=== PATIENT | male | born 1980 | race Caucasian/White ===

== ENCOUNTER 2017-06-28 05:32 | Observation (INO) | payer MEDICAID ==
[2017-06-28] MEDS ORDERED: Sodium Chloride 0.9% 10 ML Syringe FLUSH PRN (05:43)
[2017-06-28] MEDS ORDERED: Ondansetron 4 MG/2 ML SDV IVPUSH ONE (05:44)
--- NOTE | 2017-06-28 07:05 | EDM.PDOC ---
ED HPI GENERAL MEDICAL PROBLEM - General Chief Complaint: General Stated Complaint: Hernia pain Time Seen by Provider: 06/28/17 06:20 Source of Information: Reports: Patient History Limitations: Reports: No Limitations - History of Present Illness INITIAL COMMENTS - FREE TEXT/NARRATIVE: Patient is a 36 year old man who has had ventral hernia repair in 2014. He has had problems off and on then with abdominal pain off and on. This morning at 04: 00 he started having severe 9/10 pain that is crampy in nature over the hernia on the right side of his abdomen. The pain can go away if he lays a certain way. No fever or chills or urinary problems. Onset: Today Onset Date: 06/28/17 Onset Time: 04:00 Duration: Hour(s): (2), Waxing/Waning Location: Reports: Abdomen Quality: Reports: Ache, Same as Previous Episode Severity: Severe (9/10) Improves with: Reports: Movement Worsens with: Reports: None Context: Reports: Other (Status post multiple abdominal surgeries.) Associated Symptoms: Reports: Nausea/Vomiting, Other (Last bowel movement this morning.) - Related Data Allergies Allergy/AdvReac Type Severity Reaction Status Date / Time No Known Allergies Allergy Verified 04/29/16 02:04 Home Meds: Home Meds Lisinopril [Prinivil] 10 mg PO DAILY 05/11/13 [History] Omeprazole 40 mg PO DAILY 05/11/13 [History] Metoprolol Tartrate [Lopressor] 50 mg PO BID 07/28/13 [History] Sertraline HCl [Sertraline HCl] 50 mg PO DAILY 03/22/15 [History] clonazePAM [Clonazepam] 0.5 mg PO BID 03/22/15 [History] oxyCODONE 5 mg PO Q4H PRN 04/29/16 [History] Past Medical History - Past Health History Medical/Surgical History: Denies Medical/Surgical History HEENT History: Reports: Impaired Vision Cardiovascular History: Reports: Hypertension Respiratory History: Reports: SOB Gastrointestinal History: Reports: GERD Psychiatric History: Reports: Addiction, Other (See Below) Other Psychiatric History: Admits to being addicted to narcotic pain medications - Infectious Disease History Infectious Disease History: Reports: Chicken Pox - Past Surgical History GI Surgical History: Reports: Hernia, Abdominal Social & Family History - Family History Family Medical History: Noncontributory - Tobacco Use Smoking Status *Q: Current Some Day Smoker Years of Tobacco use: 25 Packs/Tins Daily: 1 Used Tobacco, but Quit: No Second Hand Smoke Exposure: No - Caffeine Use Caffeine Use: Reports: Coffee, Soda - Alcohol Use Days Per Week of Alcohol Use: 2 Number of Drinks Per Day: 3 Total Drinks Per Week: 6 - Recreational Drug Use Recreational Drug Use: Yes Recreational Drug Type: Reports: Marijuana/Hashish ED ROS GENERAL - Review of Systems Review Of Systems: See Below Constitutional: Reports: Decreased Appetite HEENT: Reports: No Symptoms Respiratory: Reports: No Symptoms Cardiovascular: Reports: No Symptoms Endocrine: Reports: No Symptoms GI/Abdominal: Reports: Abdominal Pain, Nausea : Reports: No Symptoms Musculoskeletal: Reports: No Symptoms Skin: Reports: No Symptoms Neurological: Reports: No Symptoms Psychiatric: Reports: No Symptoms Hematologic/Lymphatic: Reports: No Symptoms Immunologic: Reports: No Symptoms ED EXAM, GENERAL - Physical Exam Exam: See Below Exam Limited By: No Limitations General Appearance: Alert, WD/WN, No Apparent Distress Eye Exam: Bilateral Eye: EOMI, Normal Fundi, Normal Inspection, PERRL Ears: Normal External Exam, Normal Canal, Hearing Grossly Normal, Normal TMs Ear Exam: Bilateral Ear: Auricle Normal, Canal Normal, TM normal Nose: Normal Inspection, Normal Mucosa, No Blood Throat/Mouth: Normal Inspection, Normal Lips, Normal Teeth, Normal Gums, Normal Oropharynx, Normal Voice, No Airway Compromise Head: Atraumatic, Normocephalic Neck: Normal Inspection, Supple, Non-Tender, Full Range of Motion Respiratory/Chest: No Respiratory Distress, Lungs Clear, Normal Breath Sounds, No Accessory Muscle Use, Chest Non-Tender Cardiovascular: Normal Peripheral Pulses, Regular Rate, Rhythm, No Edema, No Gallop, No JVD, No Murmur, No Rub GI/Abdominal: Distended, Guarding, Rebound, Tender, Hernia (Large tender ventral hernia on the right.) Back Exam: Normal Inspection, Full Range of Motion, NT Extremities: Normal Inspection, Normal Range of Motion, Non-Tender, Normal Capillary Refill, No Pedal Edema Neurological: Alert, Oriented, CN II-XII Intact, Normal Cognition, Normal Gait, Normal Reflexes, No Motor/Sensory Deficits Psychiatric: Normal Affect, Normal Mood Skin Exam: Warm, Dry, Intact, Normal Color, No Rash Lymphatic: No Adenopathy Course - Vital Signs Text/Narrative:: Uneventful ED course. He got some relief with bowel rest and IV fluids. He was given 1 mg of Dilaudid and 4 mg of Zofran IV after the CT scan showed that he has a bowel obstruction, likely from the adhesions of his many surgeries. He will be admitted to observation with IV fluids and pain relief, since he needs to see a surgeon but Dr. Huang will know best where he should be transfered to for surgery given that he cannot go to certain institutions at this time due to past operations. - Orders/Labs/Meds Orders: Active Orders 24 hr Category Date Time Status Abdomen Pelvis w Cont [CT] Stat Exams 06/28/17 05:42 Taken Sodium Chloride 0.9% [Saline Flush] Med 06/28/17 05:43 Active 10 ml FLUSH ASDIRECTED PRN Saline Lock Insert [OM.PC] Routine Oth 06/28/17 05:43 Ordered Medication Orders Sodium Chloride (Saline Flush) 10 ml FLUSH ASDIRECTED PRN PRN Reason: Keep Vein Open Labs: Laboratory Tests 06/28/17 06/28/17 06/28/17 Range/Units 05:50 05:50 06:13 WBC 9.8 (4.0-11.0) K/uL RBC 4.97 (4.50-6.50) M/uL Hgb 14.3 (13.0-18.0) g/dL Hct 42.9 (40.0-54.0) % MCV 86 (76-96) fL MCH 28.8 (27.0-32.0) pg MCHC 33.3 (31.0-35.0) g/dL RDW 14.3 (11.0-16.0) % Plt Count 245 (150-400) K/uL MPV 9.8 (6.0-10.0) fL Neut % (Auto) 64.2 (45.0-70.0) % Lymph % (Auto) 22.1 (20.0-40.0) % [place] % (Auto) 10.5 H (3.0-10.0) % Eos % (Auto) 3.0 (1.0-5.0) % Baso % (Auto) 0.2 (0.0-0.5) % Neut # (Auto) 6.27 (2.00-7.50) K/uL Lymph # (Auto) 2.16 (1.50-4.00) K/uL [place] # (Auto) 1.03 H (0.20-0.80) K/uL Eos # (Auto) 0.29 (0.04-0.40) K/uL Baso # (Auto) 0.02 (0.02-0.10) K/uL Sodium 141 (136-145) mmol/L Potassium 4.1 (3.5-5.1) mmol/L Chloride 103 (98-107) mmol/L Carbon Dioxide 29.8 (21.0-32.0) mmol/L Anion Gap 12.3 (5.0-15.0) mmol/L BUN 15 D (8-26) mg/dL Creatinine 0.94 (0.70-1.30) mg/dL Est Cr Clr Drug Dosing TNP Estimated GFR (MDRD) > 60 (>60) MLS/MIN BUN/Creatinine Ratio 16.0 (6-25) Glucose 169 H (74-100) mg/dL Calcium 9.2 (8.5-10.1) mg/dL Total Bilirubin 0.4 D (0.0-1.0) mg/dL AST 20 (15-37) U/L ALT 39 (12-78) U/L Alkaline Phosphatase 66 (46-116) U/L Total Protein 7.7 (6.4-8.2) g/dL Albumin 3.6 (3.4-5.0) g/dL Globulin 4.1 (2.2-4.2) g/dL Albumin/Globulin Ratio 0.9 (0.8-2.0) Urine Color Yellow Urine Appearance Clear (CLEAR) Urine pH 6.0 (5.0-8.0) Ur Specific [place] >= 1.030 (1.003-1.030) Urine Protein 30 H (NEGATIVE) mg/dL Urine Glucose (UA) Negative (NEGATIVE) mg/dL Urine Ketones Negative (NEGATIVE) mg/dL Urine Occult Blood Negative (NEGATIVE) Urine Nitrite Negative (NEGATIVE) Urine Bilirubin Negative (NEGATIVE) Urine Urobilinogen 0.2 (0.2-1.0) E.U./dL Ur Leukocyte Esterase Negative (NEGATIVE) Urine RBC Not seen /HPF Urine WBC 0-5 H /HPF Ur Squamous Epith Cells Moderate /HPF Urine Bacteria Few /HPF Meds: Medications Generic Name Dose Route Start Last Admin Trade Name Freq PRN Reason Stop Dose Admin Sodium Chloride 10 ml 06/28/17 05:43 Saline Flush FLUSH ASDIRECTED PRN Keep Vein Open Discontinued Medications Generic Name Dose Route Start Last Admin Trade Name Freq PRN Reason Stop Dose Admin Sodium Chloride 1,000 mls @ 1,000 mls/hr 06/28/17 05:44 Normal Saline IV 06/28/17 06:43 .BOLUS ONE Ondansetron HCl 4 mg 06/28/17 05:44 Zofran IVPUSH 06/28/17 05:45 ONETIME ONE Departure - Departure Time of Disposition: 07:15 Disposition: Refer to Observation Condition: Good Clinical Impression: Small bowel obstruction due to adhesions - Discharge Information Referrals: PCP,None [Primary Care Provider] - - My Orders Last 24 Hours: My Active Orders 06/28/17 05:42 Abdomen Pelvis w Cont [CT] Stat 06/28/17 05:43 Sodium Chloride 0.9% [Saline Flush] 10 ml FLUSH ASDIRECTED PRN Saline Lock Insert [OM.PC] Routine - Assessment/Plan Last 24 Hours: My Active Orders 06/28/17 05:42 Abdomen Pelvis w Cont [CT] Stat 06/28/17 05:43 Sodium Chloride 0.9% [Saline Flush] 10 ml FLUSH ASDIRECTED PRN Saline Lock Insert [OM.PC] Routine
[2017-06-28] MEDS ORDERED: HYDROmorphone 2 MG/ML Syringe ONE (07:10)
[2017-06-28] MEDS ORDERED: Ondansetron 4 MG/2 ML SDV ONE ×2 (07:10→13:25)
[2017-06-28] MEDS: Sodium Chloride 0.9% 1,000 ML IV ONE ×2 (07:25→15:22)
--- NOTE | 2017-06-28 08:41 | CT ---
ENHANCED ABDOMEN AND PELVIC CT, 06/28/17 Multislice acquisition through the abdomen and pelvis with IV, but without oral contrast was performed. Breathing motion artifact degrades the image quality. Comparison is made to a prior exam dated 02/19/15. Portions of the anterior abdomen and anterior abdominal wall are cut off secondary to the patient's size. There are atelectatic changes in the dependent portion of both lower lungs. The lung bases are otherwise clear. There is diffuse fatty infiltration of the liver. No focal hepatic lesions. The gallbladder appears normal. The spleen appears normal. The pancreas appears normal. The right and left adrenals appear normal. The right and left kidneys appear normal. No nephrocalcinosis or nephrolithiasis. No hydronephrosis or hydroureter. The bladder is partially fluid-filled. It appears normal. The appendix is not dilated. No evidence of appendicitis. There is a ventral hernia left of the midline that contains a loop of bowel. No evidence of obstruction associated with it. There is a large ventral hernia to the right of the midline. It contains multiple loops of small bowel. They do contain multiple air-fluid levels. They are not, however distended. There is another ventral hernia on the left that contains multiple loops of small bowel that contain air-fluid levels. They are not distended . There is another smaller ventral hernia on the right that contains a loop of small bowel that is distended and contains air-fluid levels. There are loops of small bowel proximal to this that contain air-fluid levels also. Small bowel obstruction is suspected. I do not see any free air, however it cannot be excluded. No free fluid. No adenopathy. No aortic aneurysm or dissection. IMPRESSION: Multiple ventral hernias as discussed above. Small bowel obstruction is suspected. Surgical consultation is recommended. [id number] [facility]
[2017-06-28 09:12] VITALS: BP 139/81
--- NOTE | 2017-06-28 12:22 | PCM.SN ---
- Free Text/Narrative Note: Patient has improved symptoms. States he has had some gas. Improved pain and tenderness. Area of abdomen is now soft and no longer distended. Patient has increased appetite despite NPO. We will closely monitor.
[2017-06-28] MEDS ORDERED: HYDROmorphone 4 MG/ML Syringe ONE (13:25)
[2017-06-28] MEDS ORDERED: Ondansetron 4 MG/2 ML SDV IVPUSH PRN (13:43)
[2017-06-28] MEDS: HYDROmorphone 2 MG/ML Syringe IVPUSH PRN (23:37)
[2017-06-29] MEDS ORDERED: Sodium Chloride 0.9% 1,000 ML IV SCH (00:15)
[2017-06-29] MEDS ORDERED: HYDROmorphone 4 MG/ML Syringe ONE (07:07)
[2017-06-29] MEDS: HYDROmorphone 2 MG/ML Syringe IVPUSH PRN (07:11)
--- NOTE | 2017-07-06 14:50 | PCM.DCSUM1 ---
Discharge Summary - Discharge Data Discharge Date: 06/29/17 Discharge Disposition: Home, Self-Care 01 Condition: Good - Patient Instructions Diet: Clear Liquid Diet Diet, Other: soft food meal plan Activity: Rest and Relax Today - Discharge Plan Home Medications: Home Meds Lisinopril [Prinivil] 10 mg PO DAILY 05/11/13 [History] Omeprazole 40 mg PO DAILY 05/11/13 [History] Metoprolol Tartrate [Lopressor] 50 mg PO BID 07/28/13 [History] Sertraline HCl [Sertraline HCl] 50 mg PO DAILY 03/22/15 [History] Patient Handouts: Small Bowel Obstruction, [id number], Clear Liquid Diet, Adult, Soft-Food Meal Plan Forms: ED Department Discharge Referrals: PCP,None [Primary Care Provider] - - Discharge Summary/Plan Comment DC Time >30 min.: Yes Discharge Summary/Plan Comment: Counseled on continued clear liquids at this time for at least 1-2 weeks more. Discussed slow advance to soft foods with small meals and frequent meals. Discussed referral to [facility] and continued close monitoring and f/u as directed and in clinic. RTC or ER if symptoms return. - Patient Data Vitals - Most Recent: Last Vital Signs Temp Pulse 60 06/28/17 07:34 Resp 16 06/28/17 07:34 BP 139/81 06/28/17 07:34 Pulse Ox 97 06/28/17 07:34 Med Orders - Current: Current Medications Discontinued Medications Hydromorphone HCl (Dilaudid) Confirm Administered Dose 2 mg .ROUTE .STK-MED ONE Stop: 06/28/17 07:11 Last Admin: 06/28/17 07:10 Dose: 2 mg Hydromorphone HCl (Dilaudid) Confirm Administered Dose 4 mg .ROUTE .STK-MED ONE Stop: 06/28/17 13:26 Last Admin: 06/28/17 13:30 Dose: 1 mg Hydromorphone HCl (Dilaudid) 1 - 2 mg IVPUSH Q2H PRN PRN Reason: Pain Last Admin: 06/29/17 07:11 Dose: 2 mg Hydromorphone HCl (Dilaudid) Confirm Administered Dose 4 mg .ROUTE .STK-MED ONE Stop: 06/29/17 07:08 Last Admin: 06/29/17 07:54 Dose: Not Given Sodium Chloride (Normal Saline) 1,000 mls @ 1,000 mls/hr IV .BOLUS ONE Stop: 06/28/17 06:43 Last Admin: 06/28/17 15:22 Dose: 1,000 mls/hr Sodium Chloride (Normal Saline) 1,000 mls @ 125 mls/hr IV ASDIRECTED SAÚL Stop: 07/06/17 08:14 Last Admin: 06/29/17 01:06 Dose: 125 mls/hr Ondansetron HCl (Zofran) 4 mg IVPUSH ONETIME ONE Stop: 06/28/17 05:45 Last Admin: 06/28/17 07:10 Dose: 4 mg Ondansetron HCl (Zofran) Confirm Administered Dose 4 mg .ROUTE .STK-MED ONE Stop: 06/28/17 07:11 Last Admin: 06/28/17 07:37 Dose: Not Given Ondansetron HCl (Zofran) Confirm Administered Dose 4 mg .ROUTE .STK-MED ONE Stop: 06/28/17 13:26 Last Admin: 06/28/17 13:32 Dose: 4 mg Ondansetron HCl (Zofran) 4 mg IVPUSH Q6H PRN PRN Reason: Nausea/Vomiting Sodium Chloride (Saline Flush) 10 ml FLUSH ASDIRECTED PRN PRN Reason: Keep Vein Open *Q Meaningful Use (DIS) - VTE *Q VTE Criteria *Q: - Stroke *Q Stroke Criteria *Q: - AMI *Q AMI Criteria *Q:
== END 2017-06-29 10:36 | disposition home or self-care (01) ==
LOC: LB.ED 05:32 → UNDOADMOB 07:15 → LB.MS 07:15
PROVIDERS: ADMIT Family Medicine; ATTEND Family Medicine
DX: K56.50 Intestinal adhesions [bands], unspecified as to partial versus complete obstruction (principal); I10 Essential (primary) hypertension; K21.9 Gastro-esophageal reflux disease without esophagitis; Z79.899 Other long term (current) drug therapy; F17.210 Nicotine dependence, cigarettes, uncomplicated
CPT/HCPCS: 36415; 74177; 80053; 81001; 85025; 96361; 96374; 96376; 99284; G0378; J1170; J2405; J7040; 96375

== ENCOUNTER 2017-08-22 12:27 | Emergency (ER) | payer MEDICAID ==
[2017-08-22 12:59] VITALS: BP 133/106
[2017-08-22] MEDS ORDERED: Morphine 10 MG/ML Syringe ONE ×3 (13:34→16:15)
[2017-08-22] MEDS: Morphine 10 MG/ML Syringe IVPUSH ONE ×2 (13:36→15:15)
[2017-08-22] MEDS ORDERED: LORazepam 2 MG/ML SDV ONE (15:53)
--- NOTE | 2017-08-23 16:09 | CR ---
DATE OF SERVICE: 08/22/2017 CLINICAL DATA: Abdominal pain; hernia Supine and Upright Abdomen: No evidence of obstruction or ileus. No free air. MTDD
--- NOTE | 2017-08-23 16:16 | CT ---
DATE OF SERVICE: 08/22/2017 CLINICAL DATA: Abdominal Pain; hernia Unenhanced abdomen and pelvic CT: Multislice acquisition through the abdomen and pelvis without IV or oral contrast was performed. Comparison made to prior exam dated 08/22/2017. The lung bases are clear. Liver, spleen, pancreas, right and left adrenals, and right and left kidneys are stable from the prior study. The bladder is partially fluid-filled and appears normal. There are multiple ventral hernias. All of these containing multiple loops of bowel. No definite evidence for obstruction or ileus associated with them. There is diverticulosis of the sigmoid colon. No evidence fo diverticulitis. The appendix is not dilated. No evidence of appendicitis. There is an anastomosis noted in the sigmoid colon. No free air. No free fluid. No adenopathy. No dilated loops of bowel. No aortic aneurysm. MTDD
== END 2017-08-22 16:15 ==
LOC: LB.ED 12:27
DX: K43.6 Other and unspecified ventral hernia with obstruction, without gangrene (principal); I10 Essential (primary) hypertension; Z79.899 Other long term (current) drug therapy
CPT/HCPCS: 36415; 74019; 74176; 80053; 85025; 96374; 99284-25; A0425; A0429; J2270

== ENCOUNTER 2017-10-30 17:24 | Emergency (ER) | payer MEDICAID ==
[2017-10-30] MEDS ORDERED: Ketorolac 10 MG Tab ONE (17:30)
--- NOTE | 2017-10-30 17:37 | EDM.PDOC ---
ED HPI GENERAL MEDICAL PROBLEM - General Chief Complaint: General Stated Complaint: ABDOMINAL PAIN Time Seen by Provider: 10/30/17 17:30 Source of Information: Reports: Patient History Limitations: Reports: No Limitations - History of Present Illness INITIAL COMMENTS - FREE TEXT/NARRATIVE: According to patient, he has been having right side lower abdominal pain since today morning. Pain is crampy in nature and is waxing and waning type. no nausea or vomiting. no fever. Pt has had failed umbilical hernia repair and claims he does get frequent bowel obstruction. Pt thinks he might have had a coughing spell in the morning when he developed the pain. rate pain at 8/10. He did have normal bowel movement today morning and has been passing flatus. No other complaints. Onset: Today Onset Date: 10/30/17 Onset Time: 08:00 Duration: Waxing/Waning Location: Reports: Abdomen Quality: Reports: Ache Severity: Moderate Improves with: Reports: None Worsens with: Reports: None Associated Symptoms: Denies: Confusion, Chest Pain, Cough, Diaphoresis, Fever/ Chills, Headaches, Nausea/Vomiting, Rash, Seizure, Shortness of Breath, Syncope , Weakness RIGHT LOWER ABD Pain Score (Numeric/FACES): 10 - Related Data Allergies Allergy/AdvReac Type Severity Reaction Status Date / Time No Known Allergies Allergy Verified 10/30/17 17:30 Home Meds: Home Meds Lisinopril [Prinivil] 10 mg PO DAILY 05/11/13 [History] Omeprazole 40 mg PO DAILY 05/11/13 [History] Metoprolol Tartrate [Lopressor] 50 mg PO BID 07/28/13 [History] Sertraline HCl 50 mg PO DAILY 03/22/15 [History] Past Medical History - Past Health History Medical/Surgical History: Denies Medical/Surgical History HEENT History: Reports: Impaired Vision Cardiovascular History: Reports: Hypertension Respiratory History: Reports: SOB Gastrointestinal History: Reports: GERD Psychiatric History: Reports: Addiction, Other (See Below) Other Psychiatric History: Admits to being addicted to narcotic pain medications - Infectious Disease History Infectious Disease History: Reports: Chicken Pox - Past Surgical History GI Surgical History: Reports: Hernia, Abdominal Social & Family History - Family History Family Medical History: Noncontributory - Caffeine Use Caffeine Use: Reports: Coffee, Soda ED ROS GENERAL - Review of Systems Review Of Systems: See Below Constitutional: Denies: Fever, Chills, Malaise, Weakness HEENT: Denies: Rhinitis, Throat Pain, Throat Swelling Respiratory: Denies: Shortness of Breath, Wheezing, Pleuritic Chest Pain, Cough , Sputum Cardiovascular: Denies: Chest Pain, Lightheadedness GI/Abdominal: Reports: Abdominal Pain, Distension, Flatus. Denies: Nausea, Vomiting : Denies: Dysuria, Flank Pain Musculoskeletal: Denies: Joint Pain, Joint Swelling Skin: Denies: Bruising, Pruritis, Rash ED EXAM, GENERAL - Physical Exam Exam: See Below Exam Limited By: No Limitations General Appearance: Alert, WD/WN, No Apparent Distress Eye Exam: Bilateral Eye: EOMI, PERRL Ears: Normal External Exam, Normal Canal, Hearing Grossly Normal, Normal TMs Ear Exam: Bilateral Ear: Auricle Normal, Canal Normal, TM normal Nose: Normal Inspection, Normal Mucosa, No Blood Throat/Mouth: Normal Inspection, Normal Lips, Normal Teeth, Normal Gums, Normal Oropharynx, Normal Voice, No Airway Compromise Head: Atraumatic, Normocephalic Neck: Normal Inspection, Supple, Non-Tender, Full Range of Motion Respiratory/Chest: No Respiratory Distress, Lungs Clear, Normal Breath Sounds, No Accessory Muscle Use, Chest Non-Tender Cardiovascular: Normal Peripheral Pulses, Regular Rate, Rhythm, No Edema, No Gallop, No JVD, No Murmur, No Rub GI/Abdominal: Normal Bowel Sounds, Soft, Distended, Other (there is a large midline scar over the abdomen and also there are large abdominal wall hernia oneither side of the scar. Tender over the rigth sdie of anthony scar and the swelling. There are normal bowel sounds heard.). No: Guarding, Rigid, Rebound Course - Vital Signs Text/Narrative:: Pt reassured that his CBC is normal. His BMP is normal . He did receive dilaudid 1mg Im for pain. DID get Ct abdomen. CT abdomen with oral contrast shows large ventral hernia, there is no bowel obstruction. Also on clinical exam there is good bowel sounds heard. there is some hard stool in the colon. I have reassured patient that there is constipation asso with the pain, but no obstruction. Pt still c/o pain. He did receive toradol 60mg IM. Advised miralax 1 tablespoon with 6 oz of water. toradol 10mg po TID prn for pain. If her develops severe abdominal pain, bloating, nausea or vomiting needs to return to clinic. other riggins followup in clinic with his PCP next week. Last Recorded V/S: Last Vital Signs Temp 98 F 10/30/17 20:02 Pulse 67 10/30/17 20:02 Resp 20 10/30/17 20:02 BP 116/76 10/30/17 20:02 Pulse Ox 97 10/30/17 20:02 - Orders/Labs/Meds Orders: Active Orders 24 hr Category Date Time Status Abdomen Pelvis wo Cont [CT] Stat Exams 10/30/17 17:29 Taken Pelvis wo Cont [CT] Stat Exams 10/30/17 18:45 Taken Diatrizoate Rachelle/Diatrizoate Na [Gastrografin 37%] Med 10/30/17 18:00 Active 30 ml PO . DIRECTED Medication Orders Diatrizoate Meglum/Diatrizoate Sod (Gastrografin 37%) 30 ml PO . DIRECTED SAÚL Last Admin: 10/30/17 17:40 Dose: 30 ml Labs: Laboratory Tests 10/30/17 10/30/17 Range/Units 17:35 17:35 WBC 12.1 H D (4.0-11.0) K/uL RBC 5.02 (4.50-6.50) M/uL Hgb 14.7 (13.0-18.0) g/dL Hct 43.0 (40.0-54.0) % MCV 86 (76-96) fL MCH 29.3 (27.0-32.0) pg MCHC 34.2 (31.0-35.0) g/dL RDW 13.6 (11.0-16.0) % Plt Count 236 (150-400) K/uL MPV 10.2 H (6.0-10.0) fL Neut % (Auto) 72.2 H (45.0-70.0) % Lymph % (Auto) 17.1 L (20.0-40.0) % [place] % (Auto) 8.1 (3.0-10.0) % Eos % (Auto) 2.4 (1.0-5.0) % Baso % (Auto) 0.2 (0.0-0.5) % Neut # (Auto) 8.73 H (2.00-7.50) K/uL Lymph # (Auto) 2.07 (1.50-4.00) K/uL [place] # (Auto) 0.98 H (0.20-0.80) K/uL Eos # (Auto) 0.29 (0.04-0.40) K/uL Baso # (Auto) 0.02 (0.02-0.10) K/uL Sodium 140 (136-145) mmol/L Potassium 4.0 (3.5-5.1) mmol/L Chloride 103 (98-107) mmol/L Carbon Dioxide 27.5 (21.0-32.0) mmol/L Anion Gap 13.5 (5.0-15.0) mmol/L BUN 14 D (8-26) mg/dL Creatinine 0.78 (0.70-1.30) mg/dL Est Cr Clr Drug Dosing 143.69 mL/min Estimated GFR (MDRD) > 60 (>60) MLS/MIN BUN/Creatinine Ratio 17.9 (6-25) Glucose 122 H (74-100) mg/dL Calcium 9.1 (8.5-10.1) mg/dL Meds: Medications Generic Name Dose Route Start Last Admin Trade Name Freq PRN Reason Stop Dose Admin Diatrizoate Meglum/Diatrizoate Sod 30 ml 10/30/17 18:00 10/30/17 17:40 Gastrografin 37% PO 30 ml . DIRECTED SAÚL Administration Discontinued Medications Generic Name Dose Route Start Last Admin Trade Name Freq PRN Reason Stop Dose Admin Ketorolac Tromethamine Confirm 10/30/17 20:09 Toradol Administered 10/30/17 20:10 Dose 60 mg .ROUTE .STK-MED ONE Departure - Departure Time of Disposition: 20:15 Disposition: Home, Self-Care 01 Condition: Fair Clinical Impression: Abdominal pain - Discharge Information Forms: ED Department Discharge Additional Instructions: Pt reassured that his CBC is normal. His BMP is normal . He did receive dilaudid 1mg Im for pain. DID get Ct abdomen. CT abdomen with oral contrast shows large ventral hernia, there is no bowel obstruction. Also on clinical exam there is good bowel sounds heard. there is some hard stool in the colon. I have reassured patient that there is constipation asso with the pain, but no obstruction. Pt still c/o pain. He did receive toradol 60mg IM. Advised miralax 1 tablespoon with 6 oz of water. toradol 10mg po TID prn for pain. If her develops severe abdominal pain, bloating, nausea or vomiting needs to return to clinic. other riggins followup in clinic with his PCP next week. - Problem List & Annotations (1) Abdominal pain SNOMED Code(s): 88743214 Code(s): R10.9 - UNSPECIFIED ABDOMINAL PAIN Status: Acute Current Visit: Yes - Problem List Review Problem List Initiated/Reviewed/Updated: Yes - My Orders Last 24 Hours: My Active Orders 10/30/17 17:29 Abdomen Pelvis wo Cont [CT] Stat 10/30/17 18:00 Diatrizoate Rachelle/Diatrizoate Na [Gastrografin 37%] 30 ml PO . DIRECTED 10/30/17 18:45 Pelvis wo Cont [CT] Stat - Assessment/Plan Last 24 Hours: My Active Orders 10/30/17 17:29 Abdomen Pelvis wo Cont [CT] Stat 10/30/17 18:00 Diatrizoate Rachelle/Diatrizoate Na [Gastrografin 37%] 30 ml PO . DIRECTED 10/30/17 18:45 Pelvis wo Cont [CT] Stat Assessment:: Abdominal pain with large ventral hernia with no obstruction Plan: Pt reassured that his CBC is normal. His BMP is normal . He did receive dilaudid 1mg Im for pain. DID get Ct abdomen. CT abdomen with oral contrast shows large ventral hernia, there is no bowel obstruction. Also on clinical exam there is good bowel sounds heard. there is some hard stool in the colon. I have reassured patient that there is constipation asso with the pain, but no obstruction. Pt still c/o pain. He did receive toradol 60mg IM. Advised miralax 1 tablespoon with 6 oz of water. toradol 10mg po TID prn for pain. If her develops severe abdominal pain, bloating, nausea or vomiting needs to return to clinic. other riggins followup in clinic with his PCP next week.
[2017-10-30] MEDS ORDERED: Diatrizoate Meglumine/Diatrizoate Sodium 37% 30 ML Bottle PO SCH (18:00)
[2017-10-30] MEDS ORDERED: HYDROmorphone 2 MG/ML Syringe SUBCUT PRN (18:20)
[2017-10-30 20:03] VITALS: BP 116/76
[2017-10-30] MEDS ORDERED: Ketorolac 60 MG/2 ML SDV ONE (20:09)
[2017-10-30] MEDS ORDERED: Ketorolac 60 MG/2 ML SDV IM ONE (20:10)
== END 2017-10-30 20:17 | disposition home or self-care (01) ==
LOC: LB.ED 17:24
DX: R10.31 Right lower quadrant pain (principal); I10 Essential (primary) hypertension; K21.9 Gastro-esophageal reflux disease without esophagitis; Z79.899 Other long term (current) drug therapy
CPT/HCPCS: 36415; 72192; 74176; 80048; 85025; 96372; 99284; A9270; J1170; J1885; Q9963

== ENCOUNTER 2017-10-31 16:33 | Emergency (ER) | payer MEDICAID ==
--- NOTE | 2017-10-31 16:44 | EDM.PDOC ---
ED HPI GENERAL MEDICAL PROBLEM - General Chief Complaint: General Stated Complaint: ABDOMEN PAIN Time Seen by Provider: 10/31/17 16:35 Source of Information: Reports: Patient History Limitations: Reports: No Limitations - History of Present Illness INITIAL COMMENTS - FREE TEXT/NARRATIVE: Pt was seen yesterday with abdominal pain. Apparently his CT abdomen and Lab work was normal. He was reassured and discharge home and advised to return to emergency room , if his symptoms get worse. Pt claims that he had been having pain in the right lower quadrant of the abdomen. Onset Date: 10/30/17 Onset Time: 08:00 Duration: Getting Worse, Waxing/Waning Location: Reports: Abdomen Quality: Reports: Ache Severity: Moderate Improves with: Reports: None Worsens with: Reports: None Associated Symptoms: Reports: Nausea/Vomiting. Denies: Confusion, Chest Pain, Cough, Diaphoresis, Fever/Chills, Headaches, Rash, Seizure, Shortness of Breath , Syncope, Weakness - Related Data Allergies Allergy/AdvReac Type Severity Reaction Status Date / Time No Known Allergies Allergy Verified 10/30/17 17:30 Home Meds: Home Meds Lisinopril [Prinivil] 10 mg PO DAILY 05/11/13 [History] Omeprazole 40 mg PO DAILY 05/11/13 [History] Metoprolol Tartrate [Lopressor] 50 mg PO BID 07/28/13 [History] Sertraline HCl 50 mg PO DAILY 03/22/15 [History] Past Medical History - Past Health History Medical/Surgical History: Denies Medical/Surgical History HEENT History: Reports: Impaired Vision Cardiovascular History: Reports: Hypertension Respiratory History: Reports: SOB Gastrointestinal History: Reports: GERD Psychiatric History: Reports: Addiction, Other (See Below) Other Psychiatric History: Admits to being addicted to narcotic pain medications - Infectious Disease History Infectious Disease History: Reports: Chicken Pox - Past Surgical History GI Surgical History: Reports: Hernia, Abdominal Social & Family History - Family History Family Medical History: Noncontributory - Caffeine Use Caffeine Use: Reports: Coffee, Soda ED ROS GENERAL - Review of Systems Review Of Systems: See Below Constitutional: Denies: Fever, Chills, Malaise, Weakness HEENT: Denies: Rhinitis, Throat Pain, Throat Swelling Respiratory: Denies: Shortness of Breath, Wheezing, Cough, Sputum Cardiovascular: Denies: Chest Pain, Lightheadedness GI/Abdominal: Reports: Abdominal Pain, Nausea, Vomiting. Denies: Flatus : Denies: Dysuria, Flank Pain, Frequency Musculoskeletal: Denies: Foot Pain, Joint Pain, Joint Swelling Skin: Denies: Bruising, Pruritis, Rash Neurological: Denies: Confusion, Dizziness, Headache, Numbness, Tingling ED EXAM, GENERAL - Physical Exam Exam: See Below Exam Limited By: No Limitations General Appearance: Alert, WD/WN, No Apparent Distress, Other (Mrobidly obese. Pt is crying and agitated.) Eye Exam: Bilateral Eye: EOMI, PERRL Ears: Normal External Exam, Normal Canal, Hearing Grossly Normal, Normal TMs Nose: Normal Inspection, Normal Mucosa, No Blood Throat/Mouth: Normal Inspection, Normal Lips, Normal Teeth, Normal Gums, Normal Oropharynx, Normal Voice, No Airway Compromise Head: Atraumatic, Normocephalic Neck: Normal Inspection, Supple, Non-Tender, Full Range of Motion Respiratory/Chest: No Respiratory Distress, Lungs Clear, Normal Breath Sounds, No Accessory Muscle Use, Chest Non-Tender Cardiovascular: Normal Peripheral Pulses, Regular Rate, Rhythm, No Edema, No Gallop, No JVD, No Murmur, No Rub Peripheral Pulses: 2+: Radial (L), Radial (R) GI/Abdominal: Soft, Non-Tender (with in the right ), No Distention, No Abnormal Bruit, No Mass, Distended, Rebound (right lower abdomen), Tender (in the right lower abdominal hernia sac.), Abnormal Bowel Sounds (hypoactive bowel sounds.), Other (Therre is a large mid abdominal scar with large hernail sacs or either side of the scar.). No: Guarding, Rigid Extremities: Normal Inspection, Normal Range of Motion, Non-Tender, Normal Capillary Refill, No Pedal Edema Neurological: Alert, Oriented, CN II-XII Intact, Normal Cognition, Normal Gait, Normal Reflexes, No Motor/Sensory Deficits Psychiatric: Normal Affect, Normal Mood Skin Exam: Warm, Intact Course - Vital Signs Text/Narrative:: Pt's CBC shows white count of 12.6 with 71 % neutrophils. His CMP appear normal with normal creat of 0.79. Pt's Ct abdomen today does show multiple air fluids level in the small bowel in the right lower hernial sac. Also pt has had worsening abdominal pain with vomiting. Pt has developed SBO. Pt did receive dilaudid 1 mg in the emergency room. His pain is down from 10/10 to 5/10. I did look at the CT done today, which did show multiple air fluid levels. And was planning to admit patient to [facility] for conservative management of small bowel obstruction, when I got a call from [facility] that there is concern of strangulation with in the hernia. I did call [facility] and discuss patient with Dr. Caraballo the general surgeon mutton puncher. His recommendation was to send patient down to [place] [facility]. I did discuss with Dr. Granado and he has agreed to accept patient. I have discussed the plan with patient and he does agree with transfer. He will be kept NPO and he has been started on bolus of NS 1 litre, which will be followed by NS at 150cc/hr. Pt will be transferred by ALS ambulance to [facility]. Further care as per /Dr. Caraballo. Last Recorded V/S: Last Vital Signs Temp 98.5 F 10/31/17 17:45 Pulse 67 10/31/17 17:45 Resp 16 10/31/17 17:45 BP 129/72 10/31/17 17:45 Pulse Ox 96 10/31/17 17:45 - Orders/Labs/Meds Orders: Active Orders 24 hr Category Date Time Status Patient Status [ADT] Routine ADT 10/31/17 17:40 Active Bedrest Bathroom Privileges [RC] ASDIRECTED Care 10/31/17 17:39 Active Height and Weight [RC] UPON Care 10/31/17 17:39 Active Intake and Output [RC] QSHIFT Care 10/31/17 17:41 Active Oxygen Therapy [RC] PRN Care 10/31/17 17:40 Active VTE/DVT Education [RC] Per Unit Routine Care 10/31/17 17:40 Active Vital Signs [RC] Q4H Care 10/31/17 17:40 Active Nothing per Oral Now Diet [DIET] Diet 10/31/17 Dinner Ordered Abdomen Pelvis wo Cont [CT] Stat Exams 10/31/17 17:04 Taken BASIC METABOLIC PANEL,BMP [CHEM] Routine Lab 11/01/17 07:30 Ordered CBC W/O DIFF,HEMOGRAM [HEME] Routine Lab 11/01/17 07:00 Ordered Ketorolac [Toradol] Med 10/31/17 17:39 Active 30 mg IM Q8H PRN Ondansetron [Zofran] Med 10/31/17 17:39 Active 4 mg IV Q6H PRN Pantoprazole [ProTONIX IV] Med 10/31/17 17:45 Active 40 mg IV DAILY Sodium Chloride 0.9% [Normal Saline] 1,000 ml Med 10/31/17 17:45 Active IV ASDIRECTED Sodium Chloride 0.9% [Normal Saline] 500 ml Med 10/31/17 17:45 Active IV .BOLUS Sodium Chloride 0.9% [Saline Flush] Med 10/31/17 17:39 Active 10 ml FLUSH ASDIRECTED PRN Peripheral IV Insertion Adult [OM.PC] Routine Oth 10/31/17 17:39 Ordered Resuscitation Status Routine Resus Stat 10/31/17 17:39 Ordered Medication Orders Sodium Chloride (Normal Saline) 500 mls @ 999 mls/hr IV .BOLUS SAÚL Last Admin: 10/31/17 18:30 Dose: 999 mls/hr Sodium Chloride (Normal Saline) 1,000 mls @ 150 mls/hr IV ASDIRECTED SAÚL Ketorolac Tromethamine (Toradol) 30 mg IM Q8H PRN PRN Reason: Pain (moderate 4-6) Last Admin: 10/31/17 16:52 Dose: 30 mg Ondansetron HCl (Zofran) 4 mg IV Q6H PRN PRN Reason: Nausea/Vomiting Pantoprazole Sodium (Protonix Iv) 40 mg IV DAILY SAÚL Sodium Chloride (Saline Flush) 10 ml FLUSH ASDIRECTED PRN PRN Reason: Keep Vein Open Last Admin: 10/31/17 18:39 Dose: 10 ml Labs: Laboratory Tests 10/31/17 10/31/17 Range/Units 16:45 16:45 WBC 12.6 H (4.0-11.0) K/uL RBC 5.05 (4.50-6.50) M/uL Hgb 14.8 (13.0-18.0) g/dL Hct 42.6 (40.0-54.0) % MCV 84 (76-96) fL MCH 29.3 (27.0-32.0) pg MCHC 34.7 (31.0-35.0) g/dL RDW 13.7 (11.0-16.0) % Plt Count 281 (150-400) K/uL MPV 10.1 H (6.0-10.0) fL Neut % (Auto) 71.0 H (45.0-70.0) % Lymph % (Auto) 17.0 L (20.0-40.0) % [place] % (Auto) 10.0 (3.0-10.0) % Eos % (Auto) 1.9 (1.0-5.0) % Baso % (Auto) 0.1 (0.0-0.5) % Neut # (Auto) 8.95 H (2.00-7.50) K/uL Lymph # (Auto) 2.15 (1.50-4.00) K/uL [place] # (Auto) 1.26 H (0.20-0.80) K/uL Eos # (Auto) 0.24 (0.04-0.40) K/uL Baso # (Auto) 0.01 L (0.02-0.10) K/uL Sodium 137 (136-145) mmol/L Potassium 3.6 (3.5-5.1) mmol/L Chloride 100 (98-107) mmol/L Carbon Dioxide 28.0 (21.0-32.0) mmol/L Anion Gap 12.6 (5.0-15.0) mmol/L BUN 14 (8-26) mg/dL Creatinine 0.79 (0.70-1.30) mg/dL Est Cr Clr Drug Dosing TNP Estimated GFR (MDRD) > 60 (>60) MLS/MIN BUN/Creatinine Ratio 17.7 (6-25) Glucose 108 H (74-100) mg/dL Calcium 9.2 (8.5-10.1) mg/dL Total Bilirubin 0.5 D (0.0-1.0) mg/dL AST 16 (15-37) U/L ALT 38 (12-78) U/L Alkaline Phosphatase 73 (46-116) U/L Total Protein 7.8 (6.4-8.2) g/dL Albumin 3.5 (3.4-5.0) g/dL Globulin 4.3 H (2.2-4.2) g/dL Albumin/Globulin Ratio 0.8 (0.8-2.0) Meds: Medications Generic Name Dose Route Start Last Admin Trade Name Freq PRN Reason Stop Dose Admin Sodium Chloride 500 mls @ 999 mls/hr 10/31/17 17:45 10/31/17 18:30 Normal Saline IV 999 mls/hr .BOLUS SAÚL Administration Sodium Chloride 1,000 mls @ 150 mls/hr 10/31/17 17:45 Normal Saline IV ASDIRECTED SAÚL Ketorolac Tromethamine 30 mg 10/31/17 17:39 10/31/17 16:52 Toradol IM 30 mg Q8H PRN Administration Pain (moderate 4-6) Ondansetron HCl 4 mg 10/31/17 17:39 Zofran IV Q6H PRN Nausea/Vomiting Pantoprazole Sodium 40 mg 10/31/17 17:45 Protonix Iv IV DAILY SAÚL Sodium Chloride 10 ml 10/31/17 17:39 10/31/17 18:39 Saline Flush FLUSH 10 ml ASDIRECTED PRN Administration Keep Vein Open Discontinued Medications Generic Name Dose Route Start Last Admin Trade Name Freq PRN Reason Stop Dose Admin Hydromorphone HCl 1 mg 10/31/17 16:35 10/31/17 18:37 Dilaudid IM 10/31/17 16:36 1 mg ONETIME ONE Administration Departure - Departure Time of Disposition: 17:25 Disposition: DC/Tfer to Acute Hospital 02 Condition: Fair Clinical Impression: Small bowel obstruction with strangulation or infarction - Discharge Information Forms: ED Department Discharge - Problem List & Annotations (1) Small bowel obstruction with strangulation or infarction SNOMED Code(s): 836772290 Code(s): GDT4651 - Status: Acute - Problem List Review Problem List Initiated/Reviewed/Updated: Yes - My Orders Last 24 Hours: My Active Orders 10/31/17 17:04 Abdomen Pelvis wo Cont [CT] Stat 10/31/17 17:39 Bedrest Bathroom Privileges [RC] ASDIRECTED Height and Weight [RC] UPON Ketorolac [Toradol] 30 mg IM Q8H PRN Ondansetron [Zofran] 4 mg IV Q6H PRN Sodium Chloride 0.9% [Saline Flush] 10 ml FLUSH ASDIRECTED PRN Peripheral IV Insertion Adult [OM.PC] Routine Resuscitation Status Routine 10/31/17 17:40 Patient Status [ADT] Routine Oxygen Therapy [RC] PRN VTE/DVT Education [RC] Per Unit Routine Vital Signs [RC] Q4H 10/31/17 17:41 Intake and Output [RC] QSHIFT 10/31/17 17:45 Pantoprazole [ProTONIX IV] 40 mg IV DAILY Sodium Chloride 0.9% [Normal Saline] 1,000 ml IV ASDIRECTED Sodium Chloride 0.9% [Normal Saline] 500 ml IV .BOLUS 10/31/17 Dinner Nothing per Oral Now Diet [DIET] 11/01/17 07:00 CBC W/O DIFF,HEMOGRAM [HEME] Routine 11/01/17 07:30 BASIC METABOLIC PANEL,BMP [CHEM] Routine - Assessment/Plan Last 24 Hours: My Active Orders 10/31/17 17:04 Abdomen Pelvis wo Cont [CT] Stat 10/31/17 17:39 Bedrest Bathroom Privileges [RC] ASDIRECTED Height and Weight [RC] UPON Ketorolac [Toradol] 30 mg IM Q8H PRN Ondansetron [Zofran] 4 mg IV Q6H PRN Sodium Chloride 0.9% [Saline Flush] 10 ml FLUSH ASDIRECTED PRN Peripheral IV Insertion Adult [OM.PC] Routine Resuscitation Status Routine 10/31/17 17:40 Patient Status [ADT] Routine Oxygen Therapy [RC] PRN VTE/DVT Education [RC] Per Unit Routine Vital Signs [RC] Q4H 10/31/17 17:41 Intake and Output [RC] QSHIFT 10/31/17 17:45 Pantoprazole [ProTONIX IV] 40 mg IV DAILY Sodium Chloride 0.9% [Normal Saline] 1,000 ml IV ASDIRECTED Sodium Chloride 0.9% [Normal Saline] 500 ml IV .BOLUS 10/31/17 Dinner Nothing per Oral Now Diet [DIET] 11/01/17 07:00 CBC W/O DIFF,HEMOGRAM [HEME] Routine 11/01/17 07:30 BASIC METABOLIC PANEL,BMP [CHEM] Routine Assessment:: Small bowel obstruction with possible early strangulation Plan: Pt's CBC shows white count of 12.6 with 71 % neutrophils. His CMP appear normal with normal creat of 0.79. Pt's Ct abdomen today does show multiple air fluids level in the small bowel in the right lower hernial sac. Also pt has had worsening abdominal pain with vomiting. Pt has developed SBO. Pt did receive dilaudid 1 mg in the emergency room. His pain is down from 10/10 to 5/10. I did look at the CT done today, which did show multiple air fluid levels. And was planning to admit patient to [facility] for conservative management of small bowel obstruction, when I got a call from [facility] that there is concern of strangulation with in the hernia. I did call [facility] and discuss patient with Dr. Caraballo the general surgeon mutton puncher. His recommendation was to send patient down to [place] [facility]. I did discuss with Dr. Granado and he has agreed to accept patient. I have discussed the plan with patient and he does agree with transfer. He will be kept NPO and he has been started on bolus of NS 1 litre, which will be followed by NS at 150cc/hr. Pt will be transferred by ALS ambulance to [facility]. Further care as per /Dr. Caraballo.
[2017-10-31] MEDS: Ketorolac 60 MG/2 ML SDV IM PRN (16:52)
[2017-10-31] MEDS ORDERED: Ondansetron 4 MG/2 ML SDV IV PRN (17:39)
[2017-10-31] MEDS ORDERED: Pantoprazole 40 MG Vial IV SCH (17:45)
[2017-10-31] MEDS ORDERED: Sodium Chloride 0.9% 1,000 ML IV SCH (17:45)
[2017-10-31] MEDS: Sodium Chloride 0.9% 500 ML IV SCH (18:30)
[2017-10-31] MEDS: HYDROmorphone 2 MG/ML Syringe IM ONE (18:37)
[2017-10-31] MEDS: Sodium Chloride 0.9% 10 ML Syringe FLUSH PRN (18:39)
[2017-10-31 19:00] VITALS: BP 129/72
--- NOTE | 2017-11-01 07:41 | CT ---
DATE OF SERVICE: 10/30/17 CLINICAL DATA: possible bowel obstruction UNENHANCED ABDOMEN AND PELVIC CT: Multislice acquisition through the abdomen and pelvis with oral, but without IV contrast was performed. Comparison is made to a prior exam dated 08/22/17. There are atelectatic changes in both lung bases. The lung bases are otherwise clear. There is diffuse fatty infiltration of the liver. No focal hepatic lesions. The gallbladder appears normal. The spleen, pancreas, right and left adrenals, and right and left kidneys are stable. The bladder is partially fluid filled and appears normal. There are three ventral hernias. The largest is in inferior and is a complex ventral hernia extending to the right and left and containing multiple loops of bowel. I do not see any definite evidence of obstruction associated with these. No free air. No dilated loops of bowel. No adenopathy. No aortic aneurysm. PELVIC CT: Multislice acquisition throughout the pelvis with oral, but without IV contrast was performed. Comparison is made to a prior exam from earlier in the day. Again noted are the multiple ventral hernias containing multiple loops of bowel. There is contrast noted within loops of small bowel in the most inferior hernia. No definite evidence for obstruction. No free air. UNENHANCED ABDOMEN AND PELVIC CT: 10/31/17 Multislice acquisition through the abdomen and pelvis with oral, but without IV contrast was performed. Comparison is made to multiple prior abdomen and pelvic CTs dated 10/30/17. There are mild atelectatic changes in both lung bases. The lung bases are otherwise clear. The gallbladder, liver, spleen, pancreas, right and left adrenals, and right and left kidneys are stable. There is a small amount of fluid within the bladder. It appears normal. The multiple ventral hernias are again seen. There is increased distention of the loops of small bowel within these hernias and they do contain air fluid levels, consistent with an ileus or partial obstruction. There is also some minimal edema and fat stranding within the hernia sacs. The patient's physician was notified of the findings by telephone and by virtual radiologic preliminary radiology report. [id number] [facility]
== END 2017-10-31 19:25 ==
LOC: LB.ED 16:33
DX: K56.609 Unspecified intestinal obstruction, unspecified as to partial versus complete obstruction (principal); I10 Essential (primary) hypertension; K21.9 Gastro-esophageal reflux disease without esophagitis; Z79.899 Other long term (current) drug therapy
CPT/HCPCS: 36415; 74176; 80053; 85025; 96372; 99285; A0425; A0429; J1170; J1885; J7040; J7050

== ENCOUNTER 2018-10-12 06:54 | Emergency (ER) | payer MEDICAID ==
[2018-10-12] MEDS ORDERED: Sulfamethoxazole/Trimethoprim 800-160 MG Tab ONE (07:30)
--- NOTE | 2018-10-12 08:30 | EDM.PDOC ---
ED HPI GENERAL MEDICAL PROBLEM - General Chief Complaint: Genitourinary Problem Stated Complaint: POSS UTI Time Seen by Provider: 10/12/18 07:50 Source of Information: Reports: Patient, RN History Limitations: Reports: No Limitations - History of Present Illness INITIAL COMMENTS - FREE TEXT/NARRATIVE: 38 yr old male presents to ER with burning with urination. Pt states he has had a UTI in the past, but has been awhile. Discussed option of clinic visit and pt would like to be seen in ER. No temperature noted, urine is dark sunshine in color per pt, states no hematuria and no back or flank pain with this. States he is having many social concerns and concerns of family and concerns of sons depression. - Related Data Allergies Allergy/AdvReac Type Severity Reaction Status Date / Time No Known Allergies Allergy Verified 10/12/18 07:43 Home Meds: Home Meds Lisinopril [Prinivil] 10 mg PO DAILY 05/11/13 [History] Omeprazole 40 mg PO DAILY 05/11/13 [History] Metoprolol Tartrate [Lopressor] 50 mg PO BID 07/28/13 [History] Sertraline HCl 50 mg PO DAILY 03/22/15 [History] Past Medical History - Past Health History Medical/Surgical History: Denies Medical/Surgical History HEENT History: Reports: Impaired Vision Cardiovascular History: Reports: Hypertension Respiratory History: Reports: SOB Gastrointestinal History: Reports: GERD Psychiatric History: Reports: Addiction, Other (See Below) Other Psychiatric History: Admits to being addicted to narcotic pain medications - Infectious Disease History Infectious Disease History: Reports: Chicken Pox - Past Surgical History GI Surgical History: Reports: Hernia, Abdominal Social & Family History - Family History Family Medical History: Noncontributory - Caffeine Use Caffeine Use: Reports: Coffee, Soda ED ROS GENERAL - Review of Systems Review Of Systems: See Below Constitutional: Reports: No Symptoms HEENT: Reports: No Symptoms Respiratory: Reports: No Symptoms Cardiovascular: Reports: No Symptoms GI/Abdominal: Reports: Decreased Appetite (States this is from his social concerns.). Denies: Constipation, Diarrhea : Reports: Dysuria. Denies: Flank Pain, Hematuria Skin: Denies: Rash Neurological: Reports: No Symptoms Psychiatric: Reports: Other (some depression, but is managing) Hematologic/Lymphatic: Reports: No Symptoms Immunologic: Reports: No Symptoms ED EXAM, RENAL/ - Physical Exam Exam: See Below Exam Limited By: No Limitations General Appearance: Alert, No Apparent Distress Respiratory/Chest: No Respiratory Distress, Lungs Clear, Normal Breath Sounds Cardiovascular: Regular Rate, Rhythm GI/Abdominal: Soft, Non-Tender Back Exam: Normal Inspection Neurological: Alert, Oriented, CN II-XII Intact, Normal Cognition, Normal Gait Psychiatric: Normal Affect, Normal Mood Skin Exam: Warm, Dry, Normal Color Course - Orders/Labs/Meds Labs: Laboratory Tests 10/12/18 Range/Units 07:30 Urine Color Red Urine Appearance Cloudy (CLEAR) Urine pH 6.0 (5.0-8.0) Ur Specific [place] >= 1.030 (1.003-1.030) Urine Protein 100 H (NEGATIVE) mg/dL Urine Glucose (UA) Negative (NEGATIVE) mg/dL Urine Ketones Trace H (NEGATIVE) mg/dL Urine Occult Blood Large H (NEGATIVE) Urine Nitrite Negative (NEGATIVE) Urine Bilirubin Small H (NEGATIVE) Urine Urobilinogen 1.0 (0.2-1.0) E.U./dL Ur Leukocyte Esterase Moderate H (NEGATIVE) Urine RBC 10-20 H /HPF Urine WBC 10-20 H /HPF Ur Squamous Epith Cells Rare /HPF Urine Bacteria Many H /HPF Departure - Departure Time of Disposition: 08:11 Disposition: Home, Self-Care 01 Condition: Good Clinical Impression: UTI, Urinary tract infectious disease - Discharge Information *PRESCRIPTION DRUG MONITORING PROGRAM REVIEWED*: Not Applicable *COPY OF PRESCRIPTION DRUG MONITORING REPORT IN PATIENT LAURO: Not Applicable Instructions: Urinary Tract Infection, Adult Referrals: PCP,None [Primary Care Provider] - Forms: ED Department Discharge Additional Instructions: Take Bactrim one tab twice a day for 10 days. Return to clinic if symptoms increase or dont improve. Follow up in clinic next week. - Assessment/Plan Plan: UTI: No allergies noted, pt states no history of kidney disease. Rx for Bactrim DS started in ER, 1 tablet bid X 10 days. RTC or ER if symptoms worsen. Monitor for any temperature. Counseled on medication use and potential side effects. RTC to discuss social concerns.
== END 2018-10-12 08:03 | disposition home or self-care (01) ==
LOC: LB.ED 06:54
DX: N39.0 Urinary tract infection, site not specified (principal); I10 Essential (primary) hypertension; Z79.899 Other long term (current) drug therapy
CPT/HCPCS: 81001; 99283; A9270-GY